=== PATIENT | female | born 2005 | race Two or more races ===

== ENCOUNTER 2023-10-27 14:24 | Emergency (ER) | payer MEDICAID, OTHER ==
[~2023-10-27] VITALS: Ht 160 cm; Wt 49.3 kg
[2023-10-27 14:45] VITALS: TEMP 98
[2023-10-27 14:53] VITALS: BP 124/75; PULSE 75; RESP 16; O2SAT 96
[2023-10-27] MEDS ORDERED: NAPR-957 PO (15:47)
== END 2023-10-27 15:51 | disposition home or self-care (01) ==
LOC: ER 14:24
DX: M75.21 Bicipital tendinitis, right shoulder (principal)

== ENCOUNTER 2024-05-28 23:06 | Inpatient (IN) | payer MEDICAID, OTHER ==
[~2024-05-28] VITALS: Ht 154.9 cm; Wt 54.1 kg
[~2024-05-28 23:06] MED LIST: NAPR-957 PO
[2024-05-29 00:19] LABS: Basophils # (auto) 0 10 ^3/uL (0-0.2); Basophils % (auto) 0.4 % (0.0-2.0); Eosinophils # (auto) 0.2 10 ^3/uL (0-0.8); Eosinophils % (auto) 1.7 % (0.0-7.0); Hematocrit 40.3 % (36.0-46.0); Lymphocytes # (auto) 2.2 10 ^3/uL (0.4-5.4); Lymphocytes % (auto) 23.4 % (10.0-50.0); Mean Corpuscular Hemoglobin 32.2 pg (28.0-32.0); Mean Corpuscular Hgb Conc. 34.6 g/dL (32.0-36.0); Monocytes # (auto) 0.5 10 ^3/uL (0-1.3); Monocytes % (auto) 5.7 % (0.0-12.0); Neutrophils # (auto) 6.6 10 ^3/uL (1.6-8.6); Neutrophils % (auto) 68.8 % (37.0-80.0); Nucleated Red Blood Cells % 0.1 %; Platelet Count (auto) 405 10^3/uL (140-450); Red Blood Cells 4.33 10^6/uL (4.0-5.20); Red Cell Distribution Width 13.2 % (11.8-14.3); White Blood Cell 9.6 10^3/uL (4.4-10.8)
[2024-05-29 00:23] LABS: Chloride 108 mmol/L (98-107); Potassium 3.7 mmol/L (3.5-5.1); Sodium 139 mmol/L (136-145)
[2024-05-29 00:24] LABS: Anion Gap 7 (5-15); Carbon Dioxide 24 mmol/L (20-31)
[2024-05-29 00:30] LABS: BUN/Creatinine Ratio 13.6 (10.0-20.0); Blood Urea Nitrogen 8 mg/dL (9-23); Glucose 98 mg/dL (74-106)
[2024-05-29 01:18] LABS: Urine Bacteria None Seen /hpf (None Seen)
[2024-05-29 01:37] LABS: Urine Blood 2+ /uL (Negative); Urine Clarity Clear (Clear); Urine Color Light-Yellow (Yellow); Urine Protein, UAD Negative (Negative); Urine Specific Gravity 1.014 (1.001-1.035); Urine Urobilinogen Normal (Negative); Urine WBC 1 /hpf (0 - 5); Urine pH 5.5 (5.0-9.0)
[2024-05-29 07:37] VITALS: PULSE 97; RESP 16; O2SAT 98
[2024-05-29] MEDS: SODIUM CHLORIDE 0.9% 1,000 ML IVB ONE (07:51)
[2024-05-29] MEDS: MORPHINE SULFATE 4 MG/ML SYR/VIAL IV ONE (07:52)
[2024-05-29] MEDS: ONDANSETRON HCL 4 MG/2 ML VIAL IV ONE ×2 (07:52→11:45)
[2024-05-29 08:41] LABS: INR 1.02 (0.9-1.15); Partial Thromboplastin Time 29.1 SEC (24.5-34.5); Prothrombin Time 10.8 sec (9.3-11.8)
[2024-05-29] MEDS: ceFAZolin 1GM/50ML 50 ML IV ONE ×2 (08:48→09:15)
[2024-05-29] MEDS ORDERED: fentaNYL CITRATE 100 MCG/2 ML VL ONE (09:17)
[2024-05-29] MEDS ORDERED: MEPERIDINE HCL (50 MG/ML) 1 ML VIAL ONE (09:18)
[2024-05-29] MEDS ORDERED: PROPOFOL 10 MG/ML 20 ML IV ONE (09:18)
[2024-05-29] MEDS ORDERED: DexAMETHasone SOD PHOS 10MG/1ML VIAL INJ ONE (09:18)
[2024-05-29] MEDS ORDERED: ONDANSETRON HCL 4 MG/2 ML VIAL ONE (09:18)
[2024-05-29] MEDS: LIDOCAINE 2% JELLY 11ml (GLYDO) ONE (09:29)
[2024-05-29] MEDS ORDERED: SUGAMMADEX 200mg/2ml Vial (100MG/ML) IV ONE (10:35)
[2024-05-29] MEDS: LIDOCAINE W/ EPINEPHRINE 1% 20ML VIAL ONE (10:45)
[2024-05-29] MEDS ORDERED: ONDANSETRON HCL 4 MG/2 ML VIAL IV PRN (10:45)
[2024-05-29] MEDS ORDERED: MORPHINE SULFATE INJ 2 MG/ml SYRG IV PRN (10:45)
[2024-05-29] MEDS ORDERED: NITROGLYCERIN 0.4 MG SL TAB SL PRN (10:45)
[2024-05-29 11:03] VITALS: PULSE 110; RESP 14; O2SAT 100
[2024-05-29] MEDS ORDERED: IBUP-1456 PO (11:04)
[2024-05-29] MEDS ORDERED: ZOFR4T PO (11:04)
[2024-05-29] MEDS ORDERED: DOCU-94 PO (11:04)
[2024-05-29] MEDS ORDERED: HYDR-4072 PO (11:04)
[2024-05-29] MEDS: HYDROmorphone HCL 2 MG/ML VL/or syr IV PRN (11:37)
[2024-05-29] MEDS: HYDROmorphone HCL 2 MG/ML VL/or syr ONE (11:43)
[2024-05-29] MEDS ORDERED: MIDAZOLAM HCL 2MG/2ML 2ml VIAL (1mg/ml) IV PRN (11:45)
[2024-05-29] MEDS ORDERED: MORPHINE SULFATE 4 MG/ML SYR/VIAL IV PRN (11:45)
[2024-05-29] MEDS ORDERED: hydrALAZINE HCL 20 MG/ML VL IV PRN (11:45)
[2024-05-29] MEDS ORDERED: ePHEDrine SULFATE 50 MG/ML AMP IV PRN (11:45)
[2024-05-29 12:05] VITALS: BP 109/75; PULSE 89; RESP 15; TEMP 98.2; O2SAT 98
[2024-05-29] MEDS: LACTATED RINGER'S 1,000 ML IV SCH (12:05)
[2024-05-29] MEDS: ceFAZolin 1GM/50ML 50 ML IV SCH (14:32)
[2024-05-29 16:28] VITALS: BP 101/58; PULSE 75; RESP 18; TEMP 97.5; O2SAT 94
[2024-05-29] MEDS ORDERED: ACETAMINOPHEN 500 MG TAB PO PRN (17:00)
[2024-05-29] MEDS ORDERED: DOCUSATE SOD 100 MG CAP PO PRN (17:00)
[2024-05-29] MEDS ORDERED: BISACODYL 10 MG RECT SUPP PR PRN (17:00)
[2024-05-29] MEDS ORDERED: HYDROcodone-ACET 10/325MG TAB PO PRN (17:00)
[2024-05-29 21:37] LABS: Basophils # (auto) 0 10 ^3/uL (0-0.2); Basophils % (auto) 0.2 % (0.0-2.0); Eosinophils # (auto) 0 10 ^3/uL (0-0.8); Hematocrit 34.5 % (36.0-46.0); Lymphocytes # (auto) 0.6 10 ^3/uL (0.4-5.4); Mean Corpuscular Hgb Conc. 34.8 g/dL (32.0-36.0); Monocytes # (auto) 0.3 10 ^3/uL (0-1.3); Monocytes % (auto) 2.7 % (0.0-12.0); Neutrophils # (auto) 10.6 10 ^3/uL (1.6-8.6); Neutrophils % (auto) 92.1 % (37.0-80.0); Platelet Count (auto) 359 10^3/uL (140-450); Red Blood Cells 3.76 10^6/uL (4.0-5.20); Red Cell Distribution Width 12.6 % (11.8-14.3); White Blood Cell 11.5 10^3/uL (4.4-10.8)
[2024-05-29 22:00] VITALS: BP 108/62; PULSE 81; RESP 17; TEMP 98.5; O2SAT 98
[2024-05-30 01:00] VITALS: BP 107/58; PULSE 83; RESP 17; TEMP 98.7; O2SAT 100
[2024-05-30 04:57] VITALS: BP 111/63; PULSE 94; RESP 17; TEMP 98.3; O2SAT 97
[2024-05-30 07:10] LABS: Basophils # (auto) 0 10 ^3/uL (0-0.2); Basophils % (auto) 0.2 % (0.0-2.0); Eosinophils # (auto) 0 10 ^3/uL (0-0.8); Eosinophils % (auto) 0.2 % (0.0-7.0); Hematocrit 33.5 % (36.0-46.0); Hemoglobin 11.9 g/dL (12.2-16.2); Lymphocytes # (auto) 1.5 10 ^3/uL (0.4-5.4); Lymphocytes % (auto) 11.6 % (10.0-50.0); Mean Corpuscular Hemoglobin 32.8 pg (28.0-32.0); Mean Corpuscular Hgb Conc. 35.6 g/dL (32.0-36.0); Monocytes % (auto) 7.7 % (0.0-12.0); Neutrophils # (auto) 10.6 10 ^3/uL (1.6-8.6); Neutrophils % (auto) 80.3 % (37.0-80.0); Nucleated Red Blood Cells % 0.1 %; Platelet Count (auto) 341 10^3/uL (140-450); Red Blood Cells 3.64 10^6/uL (4.0-5.20); Red Cell Distribution Width 12.9 % (11.8-14.3); White Blood Cell 13.2 10^3/uL (4.4-10.8)
[2024-05-30 08:00] VITALS: PULSE 74; RESP 16; O2SAT 99
[2024-05-30 08:24] VITALS: BP 108/55; PULSE 74; RESP 16; TEMP 98.1; O2SAT 99
[2024-05-30 09:24] VITALS: BP 108/55; PULSE 74; RESP 16; TEMP 98.1; O2SAT 99
[2024-05-30] MEDS ORDERED: ROCURONIUM 10MG/ML 10ML VIAL IV ONE (10:09)
== END 2024-05-30 10:10 | disposition home or self-care (01) | DRG 547 ==
LOC: ER 23:06 → OVERFLOW 05-29 10:44 → WEST WING 05-29 10:47
PROVIDERS: ADMIT Obstetrics & Gynecology; ATTEND Obstetrics & Gynecology
PROC: 0UT54ZZ Resection of Right Fallopian Tube, Percutaneous Endoscopic Approach (ICD-10-PCS; 2024-05-29)
PROC: 10T24ZZ Resection of Products of Conception, Ectopic, Percutaneous Endoscopic Approach (ICD-10-PCS; principal; 2024-05-29 09:28)
DX: O00.101 Right tubal pregnancy without intrauterine pregnancy (principal); K66.1 Hemoperitoneum; O08.0 Genital tract and pelvic infection following ectopic and molar pregnancy; R71.0 Precipitous drop in hematocrit
CPT/HCPCS: 36415; 76801; 80048; 81001; 84702; 85025; 85610; 85730; 86850; 86900; 86901; 99291; G0378; J1100; J2405; J2704